=== PATIENT | female | born 1970 | race Caucasian/White ===

== ENCOUNTER 2018-04-09 13:35 | Emergency (ER) | payer OTHER ==
[~2018-04-09] VITALS: Ht 170.2 cm; Wt 69.9 kg
== END 2018-04-09 14:09 | disposition home or self-care (01) ==
LOC: FSED 13:35
DX: R00.2 Palpitations (principal)
CPT/HCPCS: 99282

== ENCOUNTER 2018-06-18 11:22 | Emergency (ER) | payer OTHER ==
[~2018-06-18] VITALS: Ht 170.2 cm; Wt 69.9 kg
[2018-06-18] MEDS ORDERED: METOPROLOL SUCC25 MG PO (12:25)
[2018-06-18] MEDS ORDERED: LORAZEPAM INJ 2 MG/ML VIAL IV ONE (12:30)
[2018-06-18] MEDS ORDERED: SODIUM CHLORIDE 0.9% 1000ML 1,000 ML ONE (12:30)
[2018-06-18 13:13] VITALS: BP 126/74
== END 2018-06-18 13:15 | disposition home or self-care (01) ==
LOC: FSED 11:22
DX: R00.2 Palpitations (principal); I47.1 Supraventricular tachycardia; F17.210 Nicotine dependence, cigarettes, uncomplicated
CPT/HCPCS: 80053; 82553; 84484; 85025; 85379; 93005; 99284; J2060; J7030

== ENCOUNTER 2020-07-09 06:35 | Emergency (ER) | payer OTHER ==
[~2020-07-09] VITALS: Ht 172.7 cm; Wt 72.6 kg
[~2020-07-09 06:35] MED LIST: METOPROLOL SUCC25 MG PO
[2020-07-09] MEDS ORDERED: SODIUM CHLORIDE 0.9% 1000ML 1,000 ML IV STA (06:42)
--- NOTE | 2020-07-09 07:07 | NUR ---
WILL FOLLOW UP WITH HER F[employer]ER [employer] SPLICER FOR BLOOD.
[2020-07-09] MEDS ORDERED: ZOLPIDEM TARTRAT5 MG PO (07:09)
--- NOTE | 2020-07-09 07:11 | Emergency Department Note ---
History of Present Illnes History of Present Illness Chief Complaint: General Medicine Complaints History of Present Illness This is a 50 year old female hx of anxiety, SVT c/o headache, feeling very anxious since a head fall few days ago. Pt had a few drinks in [place], felt dizzy passed out and fell back downing, hitting her head. She was worried about it and could not sleep last night Arrival Mode: Car Ecological Risk Assessor Required: No Onset (how long ago): day(s) Onset quality: gradual Duration (how long): day(s) Timing of current episode: intermittent Progression: waxing and waning Chronicity: new Relieving factors: none Exacerbating factors: none Treatments prior to arrival: none Previous service: medications given Past Medical/Family History Physician Review I have reviewed the patient's past medical and family history. Any updates have been documented here. Past Medical History Past Medical History: None Other Medical History: skin cancer, SVT Past Surgical History: None Social History Smoking Cessation: Unknown if ever smoked Alcohol Use: Social Any Illegal Drug Use: No TB Exposure/Symptoms: No Physically hurt or threatened: No Family History Family history of heart diseas: No Other Last Tetanus: UTD Review of Systems Review of Systems Constitutional: Reports no symptoms EENTM: Reports no symptoms Cardiovascular: Reports no symptoms Respiratory: Reports no symptoms Gastrointestinal: Reports no symptoms Genitourinary: Reports no symptoms Musculoskeletal: Reports no symptoms Integumentary: Reports no symptoms Neurological: Reports as per HPI, Reports headache Psychological: Reports as per HPI, Reports anxiety Endocrine: Reports no symptoms Hematological/Lymphatic: Reports no symptoms Physical Exam Related Data Allergies: Coded Allergies: No Known Allergies (Unverified , 06/18/18) Vital signs reviewed: Yes Physical Exam CONSTITUTIONAL Constitutional: Present well-developed, Present well-nourished HENT HENT: Present normocephalic, Present atraumatic, Present oropharynx clear/moist, Present nose normal HENT L/R: Present left ext ear normal, Present right ext ear normal EYES Eyes: Reports PERRL, Reports conjunctivae normal NECK Neck: Present ROM normal PULMONARY Pulmonary: Present effort normal, Present breath sounds normal CARDIOVASCULAR Cardiovascular: Present regular rhythm, Present heart sounds normal, Present capillary refill normal, Present normal rate GASTROINTESTINAL Abdominal: Present soft, Present nontender, Present bowel sounds normal GENITOURINARY Genitourinary: Present exam deferred SKIN Skin: Present warm, Present dry, Present lesion (small will size bump on back oher head, no opened wound) MUSCULOSKELETAL Musculoskeletal: Present ROM normal NEUROLOGICAL Neurological: Present alert, Present oriented x 3, Present no gross motor or sensory deficits PSYCHOLOGICAL Psychological: Present mood/affect normal, Present judgement normal Results Imaging Imaging results reviewed: Yes Assessment & Plan Medical Decision Making MDM syncope, contusion, concussion, intoxication. Pt declines cardiac, EKG, labs. She is ok with CT scan Assessment & Plan Final Impression: (1) Concussion (2) Syncope and collapse (3) Anxiety Depart Disposition: HOME, SELF-halfway Meds Active Scripts Zolpidem Tartrate (ZOLPIDEM TARTRATE) 5 Mg Tablet, 5 MG PO at night PRN for insomnia, #20 TAB Prov:JENNIFER BRUNSON MD 07/09/20 Metoprolol Succinate (METOPROLOL SUCCINATE) 25 Mg Tab.er.24h, 1 TAB PO DAILY, #30 TAB 0 Refills Prov:LOIDA VILLALTA MD 06/18/18 Medications in the ED Sodium Chloride 1,000 ml @ 0 mls/hr Q0M STAT IV ; Start 07/09/20 at 06:42; Stop 07/09/20 at 06:47; Status DC Physician Attestation Provider Attestation VSS, AAOx4, no active SI/HI Pt can be d/jose safely, COPER HAND score: no record available. JENNIFER BRUNSON MD Jul 09, 2020 07:11
--- NOTE | 2020-07-09 07:17 | NUR ---
PT REFUSED BLOOD WORK, AND EKG
--- OUTSIDE RECORDS SUMMARY | 2020-07-09 07:38 | XMS REPORT | Continuity of Care Document ---
Author Author [facility] t Organization [facility] Address [address] [place] [address] Phone Unavailable Care Team Providers Care Shoeshiner Name Role Phone NONSTAFF PCP Unavailable Petty CHAVEZ, Janny Attphys Zuhair CHAVEZ, Jordi Attphys Aldair CHAVEZ, Kathy Graff Attphys Payers Payer Name Policy Type Policy Number Effective Date Expiration Date S denise [facility] [id number] 2017 00:00:00 Joint venture between [facility] Problems This patient has no known problems. Allergies, Adverse Reactions, Alerts This patient has no known allergies or adverse reactions. Medications Ordered Medication Name Filled Medication Name Start Date Stop Da te Current Medication? Ordering Clinician Indication Dosage Frequency Signature (SIG) Comments Components Source Metoprolol Succinate 25 Mg Tab.er.24h Metoprolol Succinate 2 5 Mg Tab.er.24h 2018-06-18 00:00:00 Yes Daria Moscoso Md 1 Margaux y [facility] Procedures This patient has no known procedures. Encounters Start Date/Time End Date/Time Encounter Type Admission Type Attendi [facility] Care Department Encounter ID Source 2020-04-08 11:11:31 2020-04-08 11:51:31 Office Visit Janny [facility] [id number] 2019-10-24 12:47:55 2019-10-24 14:07:28 Office Visit Jordi Moffett [facility] [id number] 2019-07-19 14:56:07 2019-07-19 16:05:41 Office Visit Dajuan Quinteroso [facility] [id number] 2018-06-18 11:22:00 2018-06-18 13:15:00 Departed Emergency Room [facility] [id number] [facility] 2018-04-09 13:35:00 2018-04-09 14:09:00 Departed Emergency Room [facility] [id number] [facility] Results This patient has no known results.
--- NOTE | 2020-07-09 07:41 | Diagnostic Imaging Report ---
CT BRAIN [facility] HISTORY: Trauma COMPARISON: None. TECHNIQUE: Noncontrast axial scans were obtained from skull base to the vertex. Coronal and sagittal reconstructions obtained from the axial data. One or more of the following dose reduction techniques were used: Automated exposure control, adjustment of the mA and/or kV according to patient size, and/or utilization of iterative reconstruction technique. DISCUSSION: Scalp/Skull: Small posterior parieto-occipital scalp hematoma. A nondisplaced, hairline fracture of the left occipital bone (squamous portion) is suspected. Brain sulci: Appropriate for patient's age. Ventricles: Normal in size and configuration. No hydrocephalus. Extra-axial spaces: No masses or fluid collections. 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 Globi pallidi calcifications are likely physiologic Otherwise, no hemorrhage, or large vascular territory acute infarct. Dural sinuses: No abnormal densities. Sellar/Suprasellar region: Intact. Skull base: Intact. Incidental findings: None. IMPRESSION: 1. Suspected, nondisplaced hairline fracture of the left occipital bone. 2. No other acute intracranial abnormalities. 3. 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 Follow-up head CT in 1 year is recommended. Signed by: Dr. Terry Del Rio M.D. on 07/09/2020 7:37 AM
[2020-07-09] MEDS ORDERED: ALPRAZOLAM0.25 MG PO (08:30)
== END 2020-07-09 08:41 | disposition home or self-care (01) ==
LOC: FSED 07:35
DX: S06.0X0A Concussion without loss of consciousness, initial encounter (principal); R55 Syncope and collapse; W01.198A Fall on same level from slipping, tripping and stumbling with subsequent striking against other object, initial encounter; Y92.89 Other specified places as the place of occurrence of the external cause; F41.9 Anxiety disorder, unspecified; Z85.828 Personal history of other malignant neoplasm of skin
CPT/HCPCS: 70450; 99283; J7030